=== PATIENT | female | born 1960 | race Caucasian/White ===

== ENCOUNTER 2020-07-01 20:00 | Emergency (ER) | payer OTHER, MEDICAID ==
[~2020-07-01] VITALS: Ht 162.5 cm; Wt 81.6 kg
--- NOTE | 2020-07-01 20:13 | ED Head Injury ---
General Stated Complaint: HEAD LAC Source: patient History of Present Illness Date Seen by Provider: July 01, 2020 Time Seen by Provider: 20:00 Initial Comments PT ARRIVES VIA EMS PT STATES SHE WAS WALKING HER DOG AND GOT TANGLED IN DOG'S LEASH AND FELL BACKWARDS, HITTING HER HEAD ON CONCRETE OCCURRED JUST PRIOR TO ARRIVAL PT WAS ABLE TO GET UP AND WALK TO NEIGHBOR'S HOUSE C/O PAIN TO BACK OF HEAD AND HAS A LACERATION TO BACK OF HEAD PT DENIES LOSS OF CONSCIOUSNESS DENIES NECK OR BACK PAIN DENIES PAIN ANYWHERE ELSE ON BODY NO NAUSEA/VOMITING NO VISION CHANGES NO PARESTHESIAS OR MOTOR DEFICITS PT IS ON BABY ASPIRIN NO PRIOR HEAD TRAUMA. LAST TETANUS VACCINATION IS UNKNOWN PCP: DR. NICHOLE IN [place] Allergies and Home Medications Allergies Coded Allergies: Penicillins (Verified Allergy, Unknown, 07/01/20) Sulfa (Sulfonamide Antibiotics) (Verified Allergy, Unknown, 07/01/20) Patient Home Medication List Home Medication List Reviewed: Yes Review of Systems Review of Systems Constitutional: no symptoms reported; No dizziness Eyes: No Symptoms Reported Ears, Nose, Mouth, Throat: no symptoms reported Respiratory: no symptoms reported Cardiovascular: no symptoms reported Gastrointestinal: no symptoms reported Genitourinary: no symptoms reported Musculoskeletal: no symptoms reported Skin: see HPI Psychiatric/Neurological: See HPI; Denies Cognitive Dysfunction; Headache; Denies Numbness, Denies Weakness Endocrine: No Symptoms Reported Hematologic/Lymphatic: No Symptoms Reported Past Ubfpbij-Lgqyqf-Enqjoo Hx Past Med/Social Hx: Reviewed and Corrections made Patient Social History Alcohol Use: Past History Drug of Choice: HX OF DRUG ABUSE Smoking Status: Current Everyday Smoker Type Used: Cigarettes, Electronic/Vapor Immunizations Up To Date Tetanus Booster (TDap): Unknown Past Medical History Surgeries: Yes (SINUS) Breast, Gallbladder, Oophorectomy Respiratory: Yes Asthma Cardiac: No Neurological: Yes (CEREBRAL MICROVASCULAR DISEASE--NO STROKE OR TIA, PER PT) Reproductive Disorders: Yes 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 DENIES IV USE. CLAIMS NO USE FOR YEARS -SMOKES 2 PPD, NOW VAPES PAST SURGICAL HISTORY: -SINUS SURGERY -CHOLECYSTECTOMY -RIGHT OOPORECTOMY FOR OVARIAN CYST -LEFT BREAST LUMPECTOMY 2013 Physical Exam Vital Signs Vital Signs - First Documented 07/01/20 20:00 Temp 35.8 Pulse 75 Resp 22 B/P (MAP) 148/73 (98) Pulse Ox 95 O2 Delivery Room Air Capillary Refill : Height, Weight, BMI Height: '" Weight: lbs. oz. kg; BMI Method: General Appearance: WD/WN, no apparent distress HEENT: PERRL/EOMI, normal ENT inspection, TMs normal, pharynx normal, other (POSTERIOR SCALP WITH 3 WOUNDS--3/4 CM LACERATION NEAR CROWN, 2.5 CM STELLATE/ROUGHLY L-SHAPED LACERATION TO MID OCCIPUT, 2 CM LINEAR LACERATION JUST INFERIOR AND TO LEFT OF STELLATE WOUND. MILD DIFFUSE OOZING OF BLOOD FROM ALL WOUNDS. ) Neck: other (CERVICAL COLLAR APPLIED ON ARRIVAL) Cardiovascular: normal peripheral pulses, regular rate, rhythm, no edema, no JVD, no murmur Respiratory: chest non-tender, normal breath sounds, no respiratory distress, no accessory muscle use Gastrointestinal: non tender, soft Back: normal inspection, no CVA tenderness, no vertebral tenderness Extremities: normal range of motion, non-tender, normal inspection, no pedal edema, no calf tenderness, normal capillary refill Psychiatric: alert, oriented x 3 Crainal Nerves: normal hearing, normal speech, PERRL Motor/Sensory: no motor deficit, no sensory deficit Skin: normal color, warm/dry, other Procedures/Interventions Wound Location: Scalp Wound Length (cm): 5.2 Wound's Depth, Shape: irregular, stellate, sub Q Wound Explored: clean Betadine Prep?: No (BETASEPT AND SALINE) Anesthesia: 1% Lidocaine Staple Repair: Stapler 35W Number of Sutures: 13 3/4 CM WOUND AT CROWN CLOSED WITH 1 STAPLE 2.5 CM STELLATE WOUND TO MID OCCIPUT CLOSED WITH 8 GIUSEPPE 2 CM LINEAR WOUND INFERIOR AND TO LEFT OF MID OCCIPUT WOUND CLOSED WITH 4 S TAPLES. Progress/Results/Core Measures Results/Orders My Orders Orders - ASHLEIGH BORJA DO Cervical Collar (07/01/20 20:10) Ct Head/Cervical Spine Wo (07/01/20 20:10) Dipht,Pertuss(Acell),Tet Adult (Boostrix (07/01/20 20:15) Lidocaine/Epi 2% 1:100,000 (Xylocaine/Ep (07/01/20 21:00) Lidocaine 1% Inj 20 Ml (Xylocaine 1% Inj (07/01/20 20:47) Medications Given in ED Current Medications Medications Dose Ordered Sig/Girish Route Start Time Stop Time Status Last Admin Dose Admin Diphtheria/ Tetanus/Acell Pertussis 0.5 ml ONCE ONCE IM 07/01/20 20:15 07/01/20 20:16 DC 07/01/20 20:44 0.5 ML Lidocaine HCl 20 ml STK-MED ONCE .ROUTE 07/01/20 20:47 07/01/20 20:56 DC 07/01/20 21:00 20 ML Vital Signs/I&O 07/01/20 07/01/20 20:00 20:00 Temp 35.8 35.8 Pulse 75 75 Resp 22 22 B/P (MAP) 148/73 (98) 148/73 (98) Pulse Ox 95 O2 Delivery Room Air Progress Progress Note : Progress Note CERVICAL COLLAR IMMEDIATELY PLACED ON ARRIVAL AND PT LAID FLAT Diagnostic Imaging Comments CT HEAD/CERVICAL SPINE--PER RADIOLOGIST REPORT AT 2052 IMPRESSION: No acute intracranial abnormality. No acute osseous abnormality within the cervical spine with moderate multilevel degenerative changes. Focal soft tissue swelling, hematoma, and laceration associated with the posterior midline scalp without underlying calvarial fracture. Reviewed: Reviewed by Me Departure Impression Primary Impression: S/P FALL FROM STANDING Additional Impressions: Closed head injury without loss of consciousness POSTERIOR SCALP LACERATIONS Cervical strain Gtlbmgajge-bcbwobskx-quslzvb (DPT) vaccination administered at current visit Disposition: 01 HOME, SELF-CARE Condition: Stable Departure-Patient Inst. Decision time for Depature: 21:14 Referrals: UNKNOWN (PCP/Family) Primary Care Physician Patient Instructions: Cervical Muscle Strain, Closed Head Injury (DC), Diphtheria and Tetanus Toxoids, and Acellular Pertussis Vaccine, Laceration Repair With [facility] [place] (DC) Add. Discharge Instructions: ICE TO SORE AREAS AT 20 MINUTE INTERVALS TYLENOL NEEDED FOR PAIN FOR FIRST 24 HOURS, THEN YOU MAY ADD IBUPROFEN NEEDED FOR PAIN AFTER 24 HOURS CLEAN WOUND TWICE A DAY WITH ANTIBACTERIAL SOAP AND WATER, OTHERWISE KEEP CLEAN AND DRY RETURN TO ER IN 10 DAYS FOR STAPLE REMOVAL, OR SOONER IF PROBLEMS ASHLEIGH BORJA DO July 01, 2020 20:13
[2020-07-01] MEDS ORDERED: TETANUS,DIPTH,PERTUSS P/F (BOOSTRIX) 0.5 ML VIAL IM ONE (20:15)
[2020-07-01] MEDS ORDERED: LIDOCAINE 1% INJ 20 ML 20 ML VIAL ONE (20:47)
--- NOTE | 2020-07-01 20:51 | Diagnostic Imaging Report ---
PROCEDURE: CT head and CT cervical spine without contrast. TECHNIQUE: Multiple contiguous axial images were obtained through the brain and cervical spine without the use of intravenous contrast. Sagittal and coronal reformations through the cervical spine were then performed. Auto Exposure Controls were utilized during the CT exam to meet ALARA standards for radiation dose reduction. INDICATION: Trauma, fall COMPARISON: 05/15/2014 FINDINGS: Mild atrophy. No intracranial hemorrhage. No intracranial mass, mass effect, midline shift, herniation, hydrocephalus, or extra-axial fluid collection. No CT evidence of an acute ischemic infarction. Focal soft tissue swelling and hematoma with laceration is noted involving the posterior midline scalp without underlying calvarial fracture. The paranasal sinuses are clear. The orbits are unremarkable. Alignment of the cervical spine is well maintained without significant anterolisthesis or retrolisthesis. Alignment of the atlantooccipital joint is well maintained. Besides endplate degenerative changes, vertebral body heights are well-maintained. No acute fracture or dislocation. No destructive osseous process. Moderate multilevel disc space height loss, greatest at C5/C6 and C6/C7 with associated disc osteophyte complexes. Scattered facet joint degenerative changes and uncovertebral joint hypertrophy. No apical pneumothorax. Paraspinal soft tissues are unremarkable. IMPRESSION: No acute intracranial abnormality. No acute osseous abnormality within the cervical spine with moderate multilevel degenerative changes. Focal soft tissue swelling, hematoma, and laceration associated with the posterior midline scalp without underlying calvarial fracture. Dictated by: Dictated on workstation # [id number]
[2020-07-01] MEDS ORDERED: LIDOCAINE/EPI 2% 1:100,00 (XYLOCAINE) 20 ML VIAL INJ ONE (21:00)
[2020-07-01 21:34] VITALS: BP 156/83
[2020-07-01] MEDS ORDERED: ACETAMINOPHEN 500 MG TAB (TYLENOL) ONE (21:37)
== END 2020-07-01 21:38 | disposition home or self-care (01) ==
LOC: ER 20:05
DX: S09.90XA Unspecified injury of head, initial encounter (principal); S01.01XA Laceration without foreign body of scalp, initial encounter; S16.1XXA Strain of muscle, fascia and tendon at neck level, initial encounter; J45.909 Unspecified asthma, uncomplicated; F17.210 Nicotine dependence, cigarettes, uncomplicated; F17.290 Nicotine dependence, other tobacco product, uncomplicated; Z23 Encounter for immunization; W18.39XA Other fall on same level, initial encounter
CPT/HCPCS: 70450; 72125; 90471; 90715

== ENCOUNTER 2020-07-12 13:59 | Emergency (ER) | payer OTHER, MEDICAID ==
[~2020-07-12] VITALS: Ht 162 cm; Wt 81.0 kg
[2020-07-12 14:09] VITALS: BP 118/78
== END 2020-07-12 14:30 | disposition home or self-care (01) ==
LOC: EDUNIT# 13:59 → ER 14:01
DX: Z48.02 Encounter for removal of sutures (principal)

== ENCOUNTER 2020-07-25 02:13 | Emergency (ER) | payer OTHER, MEDICAID ==
[~2020-07-25] VITALS: Ht 162.5 cm; Wt 85.0 kg
[2020-07-25] MEDS ORDERED: KETOROLAC 30 MG/ML VIAL IVP ONE (03:15)
--- NOTE | 2020-07-25 03:30 | ED Chest Pain ---
General Chief Complaint: Chest Pain Stated Complaint: CP Source: patient Exam Limitations: no limitations History of Present Illness Date Seen by Provider: Jul 25, 2020 Time Seen by Provider: 03:00 Initial Comments Patient is a 59-year-old female who presents to the emergency department today with a chief complaint of midsternal chest pain. Patient states that she was lying in bed playing on her phone when she had a sudden onset of pain that she rates at a "10". Patient states it radiated into her back. Patient states that she was a little bit nauseated but states she is always nauseous. She states she got a little dizzy with the pain. She denies diaphoresis or shortness of breath. Patient states that she became concerned as the pain continued and called 911 for ambulance transport to the hospital. Patient was given 4 baby aspirin prior to arrival. At the time of my evaluation she rates her pain a "2". Patient states that she had pizza rolls for dinner earlier in the evening. She states she has had gastroesophageal reflux in the past and this was different. Patient does vape and used to smoke cigarettes and quit in 2013. She denies any immediate family history of coronary artery disease. She has never had a cardiac evaluation in the past. She does not have hypertension, she is not a diabetic. Patient tells me she has a history of "microvascular disease" in her brain. She is being worked up by her primary care physician in [facility] and is sche duled to see a neurologist shortly. No recent illnesses such as fevers, chills, productive cough. No vomiting or diarrhea or urinary complaints. All other review of systems reviewed and negative except as stated above. 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: Yes Associated Symptoms: dizziness Allergies and Home Medications Allergies Coded Allergies: Penicillins (Verified Allergy, Unknown, 07/01/20) Sulfa (Sulfonamide Antibiotics) (Verified Allergy, Unknown, 07/01/20) Patient Home Medication List Home Medication List Reviewed: Yes Review of Systems Review of Systems Constitutional: see HPI EENTM: No Symptoms Reported Respiratory: No Symptoms Reported Cardiovascular: Chest Pain Gastrointestinal: No Symptoms Reported Genitourinary: No Symptoms Reported Musculoskeletal: no symptoms reported Skin: no symptoms reported Psychiatric/Neurological: No Symptoms Reported All Other Systems Reviewed Negative Unless Noted: Yes Past Uylswuo-Jmsikz-Fvaxtl Hx Patient Social History Drug of Choice: HX OF DRUG ABUSE Type Used: Cigarettes, Electronic/Vapor Recent Hopitalizations: No Immunizations Up To Date Tetanus Booster (TDap): Unknown PED Vaccines UTD: Yes Date of Influenza Vaccine: Apr 05, 2020 Seasonal Allergies Seasonal Allergies: No Past Medical History Surgeries: Yes (SINUS) Breast, Gallbladder, Oophorectomy Respiratory: Yes Asthma Currently Using CPAP: No Currently Using BIPAP: No Cardiac: No Neurological: Yes (CEREBRAL MICROVASCULAR DISEASE--NO STROKE OR TIA, PER PT) Reproductive Disorders: Yes 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 DENIES IV USE. CLAIMS NO USE FOR YEARS -SMOKES 2 PPD, NOW VAPES PAST SURGICAL HISTORY: -SINUS SURGERY -CHOLECYSTECTOMY -RIGHT OOPORECTOMY FOR OVARIAN CYST -LEFT BREAST LUMPECTOMY 2013 Physical Exam Vital Signs Vital Signs - First Documented 07/25/20 02:25 Temp 36.8 Pulse 63 Resp 18 B/P (MAP) 91/66 (74) Pulse Ox 95 O2 Delivery Room Air Capillary Refill : Height, Weight, BMI Height: '" Weight: lbs. oz. kg; 30.00 BMI Method:Estimated General Appearance: No Apparent Distress, WD/WN HEENT: PERRL/EOMI Neck: Normal Inspection Respiratory: Lungs Clear, Normal Breath Sounds, No Accessory Muscle Use, No Respiratory Distress Cardiovascular: Regular Rate, Rhythm, Other (Brisk capillary refill) Gastrointestinal: Non Tender, Soft Extremity: Normal Inspection, Normal Range of Motion, Non Tender, No Calf Tenderness Neurologic/Psychiatric: Alert, Oriented x3, No Motor/Sensory Deficits, Normal Mood/Affect Skin: Normal Color, Warm/Dry Progress/Results/Core Measures Results/Orders Lab Results Laboratory Tests Test 07/25/20 02:43 07/25/20 04:58 Range/Units White Blood Count 9.9 4.3-11.0 10^3/uL Red Blood Count 4.65 3.80-5.11 10^6/uL Hemoglobin 12.7 11.5-16.0 g/dL Hematocrit 41 35-52 % Mean Corpuscular Volume 87 80-99 fL Mean Corpuscular Hemoglobin 27 25-34 pg Mean Corpuscular Hemoglobin Concent 31 L 32-36 g/dL Red Cell Distribution Width 14.3 10.0-14.5 % Platelet Count 373 130-400 10^3/uL Mean Platelet Volume 9.9 9.0-12.2 fL Immature Granulocyte % (Auto) 0 % Neutrophils (%) (Auto) 53 42-75 % Lymphocytes (%) (Auto) 32 12-44 % Monocytes (%) (Auto) 6 0-12 % Eosinophils (%) (Auto) 7 0-10 % Basophils (%) (Auto) 1 0-10 % Neutrophils # (Auto) 5.3 1.8-7.8 10^3/uL Lymphocytes # (Auto) 3.1 1.0-4.0 10^3/uL Monocytes # (Auto) 0.6 0.0-1.0 10^3/uL Eosinophils # (Auto) 0.7 H 0.0-0.3 10^3/uL Basophils # (Auto) 0.1 0.0-0.1 10^3/uL Immature Granulocyte # (Auto) 0.0 0.0-0.1 10^3/uL Sodium Level 139 135-145 MMOL/L Potassium Level 3.7 3.6-5.0 MMOL/L Chloride Level 108 H 98-107 MMOL/L Carbon Dioxide Level 19 L 21-32 MMOL/L Anion Gap 12 5-14 MMOL/L Blood Urea Nitrogen 12 7-18 MG/DL Creatinine 1.16 0.60-1.30 MG/DL Estimat Glomerular Filtration Rate 48 BUN/Creatinine Ratio 10 Glucose Level 96 70-105 MG/DL Calcium Level 8.8 8.5-10.1 MG/DL Total Creatine Kinase 131 29-168 U/L Creatine Kinase MB 1.3 <6.6 NG/ML Troponin I < 0.028 < 0.028 <0.028 NG/ML My Orders Orders - RAQUEL,KIMBERLY M MD Ed Iv/Invasive Line Start (07/25/20 03:13) Cbc With Automated Diff (07/25/20 03:13) Basic Metabolic Panel (07/25/20 03:13) Ekg Tracing (07/25/20 03:13) Chest 1 View, Ap/Pa Only (07/25/20 03:13) Troponin I (07/25/20 03:13) Creatine Kinase Mb (07/25/20 03:13) Creatine Kinase (07/25/20 03:13) Ketorolac Injection (Toradol Injection) (07/25/20 03:15) Troponin I (07/25/20 04:45) Medications Given in ED Current Medications Medications Dose Ordered Sig/Girish Route Start Time Stop Time Status Last Admin Dose Admin Ketorolac Tromethamine 15 mg ONCE ONCE IVP 07/25/20 03:15 07/25/20 03:26 DC 07/25/20 03:33 15 MG Vital Signs/I&O 07/25/20 07/25/20 02:25 04:23 Temp 36.8 Pulse 63 Resp 18 B/P (MAP) 91/66 (74) Pulse Ox 95 O2 Delivery Room Air Room Air Progress Progress Note : Time: 05:25 Progress Note Patient's repeat troponin at 5 AM approximately 4 hours after the onset of her p ain is still less than 0.028/undetectable. Her symptoms have completely resolved. Patient has been resting comfortably in the ED throughout her stay. Toradol alleviated the rest of her pain. She has no clinical or objective findings to warrant further testing from the emergency department she is low risk on the heart score. Patient will be discharged home to follow-up with [facility]. She is given good return precautions. She verbalized understanding. All questions are sought and answered. Patient is stable for discharge. Initial ECG Impression Date: Jul 25, 2020 Initial ECG Impression Time: 02:40 Initial ECG Rate: 61 Initial ECG Rhythm: Normal Sinus Initial ECG Intervals: Normal Initial ECG Impression: Nonspecific Changes Initial ECG Comparisson: No Previous ECG Available Departure Impression Primary Impression: Chest pain Qualified Codes: R07.9 - Chest pain, unspecified Disposition: 01 HOME, SELF-CARE Condition: Stable Departure-Patient Inst. Decision time for Depature: 05:26 Referrals: [facility],LOCAL PHYSICIAN (PCP) Primary Care Physician Patient Instructions: Chest Pain That Is Not Caused by the Heart (DC) Add. Discharge Instructions: Please continue to take your daily medications as previously prescribed. Follow-up with your primary care provider. I have given you referral information on [facility]. Return to the emergency department for any new, concerning or emergent complaints. KIMBERLY GARCÍA MD Jul 25, 2020 03:30
[2020-07-25 03:31] LABS: BASOPHILS # (AUTO) 0.1 10^3/uL (0.0-0.1); BASOPHILS % (AUTO) 1 % (0-10); EOSINOPHILS # (AUTO) 0.7 10^3/uL (0.0-0.3); EOSINOPHILS % (AUTO) 7 % (0-10); HEMATOCRIT 41 % (35-52); HEMOGLOBIN 12.7 g/dL (11.5-16.0); LYMPHOCYTES # (AUTO) 3.1 10^3/uL (1.0-4.0); LYMPHOCYTES % (AUTO) 32 % (12-44); MEAN CORPUSCULAR HEMOGLOBIN 27 pg (25-34); MEAN CORPUSCULAR HGB CONC 31 g/dL (32-36); MEAN CORPUSCULAR VOLUME 87 fL (80-99); MEAN PLATELET VOLUME 9.9 fL (9.0-12.2); MONOCYTES # (AUTO) 0.6 10^3/uL (0.0-1.0); MONOCYTES % (AUTO) 6 % (0-12); NEUTROPHILS # (AUTO) 5.3 10^3/uL (1.8-7.8); NEUTROPHILS % (AUTO) 53 % (42-75); PLATELET COUNT 373 10^3/uL (130-400); WHITE BLOOD COUNT 9.9 10^3/uL (4.3-11.0)
[2020-07-25 03:37] LABS: CHLORIDE 108 MMOL/L (98-107); POTASSIUM 3.7 MMOL/L (3.6-5.0); SODIUM 139 MMOL/L (135-145)
[2020-07-25 03:38] LABS: CALCIUM 8.8 MG/DL (8.5-10.1); GLUCOSE 96 MG/DL (70-105)
[2020-07-25 03:40] LABS: CARBON DIOXIDE 19 MMOL/L (21-32)
[2020-07-25 03:42] LABS: CREATININE SERUM 1.16 MG/DL (0.60-1.30); GFR ESTIMATED 48
[2020-07-25 03:43] LABS: BUN/CREATININE RATIO 10
[2020-07-25 03:45] LABS: CREATINE KINASE 131 U/L (29-168)
[2020-07-25 03:51] LABS: CREATINE KINASE MB 1.3 NG/ML (<6.6)
[2020-07-25 06:53] VITALS: BP 103/67
--- NOTE | 2020-07-25 07:01 | Diagnostic Imaging Report ---
Clinical indications: Patient with chest pain. Exam: Portable chest x-ray upright view. Comparisons: Chest x-ray dated 06/24/2019. Findings: Lungs/pleura: There is interval minimal right basilar atelectasis. Otherwise, lungs are clear. There is no pneumothorax. There is no pleural effusion. Mediastinum: Unremarkable. Pulmonary vasculature: Unremarkable. Heart: Unremarkable. Bones/extrathoracic soft tissue: Unremarkable. Impression: There is interval minimal right basilar atelectasis. There is no radiographic evidence of acute cardiopulmonary process. Dictated by: Dictated on workstation # [id number]
== END 2020-07-25 06:52 | disposition home or self-care (01) ==
LOC: EDUNIT# 02:13 → ER 02:14
DX: R07.9 Chest pain, unspecified (principal); J45.909 Unspecified asthma, uncomplicated
CPT/HCPCS: 36415; 71045; 80048; 82550; 82553; 84484; 85025; 93005

== ENCOUNTER 2020-09-15 20:11 | Emergency (ER) | payer OTHER, MEDICAID ==
[~2020-09-15] VITALS: Ht 162.5 cm; Wt 75.0 kg
[2020-09-15] MEDS ORDERED: LORazepam 0.5 MG (ATIVAN) TABLET PO STA (20:53)
[2020-09-15] MEDS ORDERED: toPIRamate 25 MG (TOPAMAX) TAB PO ONE (21:00)
[2020-09-15 21:06] LABS: BASOPHILS # (AUTO) 0.1 10^3/uL (0.0-0.1); BASOPHILS % (AUTO) 1 % (0-10); EOSINOPHILS # (AUTO) 0.5 10^3/uL (0.0-0.3); EOSINOPHILS % (AUTO) 5 % (0-10); HEMATOCRIT 40 % (35-52); HEMOGLOBIN 12.4 g/dL (11.5-16.0); LYMPHOCYTES # (AUTO) 2.7 10^3/uL (1.0-4.0); LYMPHOCYTES % (AUTO) 28 % (12-44); MEAN CORPUSCULAR HEMOGLOBIN 27 pg (25-34); MEAN CORPUSCULAR HGB CONC 31 g/dL (32-36); MEAN CORPUSCULAR VOLUME 87 fL (80-99); MEAN PLATELET VOLUME 10.2 fL (9.0-12.2); MONOCYTES # (AUTO) 0.6 10^3/uL (0.0-1.0); MONOCYTES % (AUTO) 7 % (0-12); NEUTROPHILS # (AUTO) 5.7 10^3/uL (1.8-7.8); NEUTROPHILS % (AUTO) 59 % (42-75); PLATELET COUNT 349 10^3/uL (130-400); WHITE BLOOD COUNT 9.6 10^3/uL (4.3-11.0)
[2020-09-15] MEDS ORDERED: TOPI25TA10 PO (21:11)
[2020-09-15] MEDS ORDERED: RX-LORAZEPAM (ATIVAN) 0.5 MG TAB PPK#4 PO STA (21:12)
--- NOTE | 2020-09-15 21:12 | ED Psychosocial ---
General Chief Complaint: Psych/Social Disorder Stated Complaint: PANIC ATTACKS, SHAKING Source: patient Exam Limitations: no limitations History of Present Illness Date Seen by Provider: Sep 15, 2020 Time Seen by Provider: 21:07 Initial Comments Patient ran out of her Topamax which she states was 10 mg twice a day. This was written by primary care in [place]. She has been anxious for the past 5 days since running out of that. She switched pharmacies and call their office to have the prescription sent to a new pharmacy but they have not yet done it. She states that she has had anxiety troubles her whole life but she believes this particular exacerbation to be secondary to running out of topamax. Timing/Duration: constant Severity: moderate Associated Symptoms: denies symptoms Allergies and Home Medications Allergies Coded Allergies: Penicillins (Verified Allergy, Unknown, 07/01/20) Sulfa (Sulfonamide Antibiotics) (Verified Allergy, Unknown, 07/01/20) Patient Home Medication List Home Medication List Reviewed: Yes Review of Systems Constitutional: see HPI EENTM: see HPI Respiratory: no symptoms reported Cardiovascular: no symptoms reported Genitourinary: no symptoms reported Musculoskeletal: no symptoms reported Skin: no symptoms reported Psychiatric/Neurological: No Symptoms Reported Past Qaemnfs-Olxuzf-Xxsrkw Hx Immunizations Up To Date Tetanus Booster (TDap): Unknown PED Vaccines UTD: Yes Seasonal Allergies Seasonal Allergies: No Past Medical History Surgeries: Yes (SINUS) Breast, Gallbladder, Oophorectomy Respiratory: Yes Asthma Currently Using CPAP: No Currently Using BIPAP: No Cardiac: No Neurological: Yes (CEREBRAL MICROVASCULAR DISEASE--NO STROKE OR TIA, PER PT) Reproductive Disorders: Yes 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 DENIES IV USE. CLAIMS NO USE FOR YEARS -SMOKES 2 PPD, NOW VAPES PAST SURGICAL HISTORY: -SINUS SURGERY -CHOLECYSTECTOMY -RIGHT OOPORECTOMY FOR OVARIAN CYST -LEFT BREAST LUMPECTOMY 2013 Physical Exam Capillary Refill : Height, Weight, BMI Height: '" Weight: lbs. oz. kg; 32.00 BMI Method:Estimated General Appearance: WD/WN, no apparent distress Respiratory: lungs clear, normal breath sounds, no respiratory distress, no accessory muscle use Cardiovascular: regular rate, rhythm, no murmur Gastrointestinal: normal bowel sounds, non tender, soft Neurologic/Psychiatric: alert, normal mood/affect, oriented x 3 Appearance/Memory: appropriate appearance, appropriate insight, neat Behavior/Eye Contact: cooperative, good eye contact Thoughts/Hallucinations: normal thought pattern, no apparent hallucination Skin: normal color, warm/dry Progress/Results/Core Measures Results/Orders Lab Results Laboratory Tests Test 09/15/20 21:00 Range/Units My Orders Orders - MIKE SEARS APRN Cbc With Automated Diff (09/15/20 20:53) Basic Metabolic Panel (09/15/20 20:53) Lorazepam Tablet (Ativan Tablet) (09/15/20 20:53) Topiramate Tablet (Topamax Tablet) (09/15/20 21:00) Departure Impression Primary Impression: Anxiety Disposition: 01 HOME, SELF-CARE Condition: Stable Departure-Patient Inst. Decision time for Depature: 21:09 Referrals: NO,LOCAL PHYSICIAN (PCP/Family) Primary Care Physician Patient Instructions: Panic Disorder (DC) Scripts Topiramate (Topiramate) 25 Mg Tablet 25 MG PO BID, #20 TAB Prov: MIKE SEARS APRN 09/15/20 MIKE SEARS APRN Sep 15, 2020 21:12
[2020-09-15 21:24] LABS: CALCIUM 9.2 MG/DL (8.5-10.1); CREATININE SERUM 1.14 MG/DL (0.60-1.30); POTASSIUM 4.1 MMOL/L (3.6-5.0)
[2020-09-15 21:45] VITALS: BP 108/62
== END 2020-09-15 21:45 | disposition home or self-care (01) ==
LOC: EDUNIT# 20:11 → ER 20:13
DX: F41.9 Anxiety disorder, unspecified (principal); J45.909 Unspecified asthma, uncomplicated; F17.210 Nicotine dependence, cigarettes, uncomplicated; F17.290 Nicotine dependence, other tobacco product, uncomplicated
CPT/HCPCS: 36415; 80048; 85025; 99283